=== PATIENT | male | born 1995 | race Two or more races ===

== ENCOUNTER 2016-07-12 20:02 | Emergency (ER) | payer OTHER ==
[~2016-07-12] VITALS: Ht 167.6 cm; Wt 65.8 kg
[2016-07-12] MEDS ORDERED: NKM (20:14)
[2016-07-12 20:21] VITALS: BP 124/78
[2016-07-12] MEDS ORDERED: Mylanta II UD 30ml ORAL ONE (21:00)
[2016-07-12] MEDS ORDERED: Loperamide 2mg cap ORAL ONE (21:00)
[2016-07-12 21:11] LABS: APPEARANCE,URINE CLEAR; KETONES,URINE 2+ (NEGATIVE); LEUKOCYTE ESTERASE ,URINE 1+ (NEGATIVE); NITRITE,URINE NEGATIVE (NEGATIVE); PH,URINE 8 (4.5-8.0); PROTEIN,URINE 1+ (NEGATIVE); UROBILINOGEN,URINE NORMAL MG/DL (0.0-1.0)
[2016-07-12 21:20] LABS: BACTERIA,URINE FEW /HPF; RBC,URINE 0-2 /HPF (0 - 0)
[2016-07-12 21:39] LABS: MEAN CORPUSCULAR HEMOGLOBIN 31.1 PG (27.0-31.0); MEAN CORPUSCULAR HGB CONC 33.1 G/DL (32.0-36.0); MEAN CORPUSCULAR VOLUME 94 FL (80-99); MEAN PLATELET VOLUME 6.5 FL (6.5-10.1); PLATELET COUNT 79 K/UL (150-450); RED BLOOD COUNT 3.32 M/UL (4.70-6.10); WHITE BLOOD COUNT 7.4 K/UL (4.8-10.8)
[2016-07-12 22:00] LABS: ALANINE AMINOTRANSFERASE 22 U/L (3-41); ALBUMIN/GLOBULIN RATIO 1.4 (1.0-2.7); ANION GAP 21 (5-15); ASPARTATE AMINO TRANSFERASE 33 U/L (5-40); CALCIUM 9.4 mg/dL (8.6-10.2); CARBON DIOXIDE 21 mEQ/L (20-30); CHLORIDE 95 mEQ/L (98-107); CREATININE 0.8 mg/dL (0.7-1.2); GLOMERULAR FILTRATION RATE > 60 mL/min (>60); HEMOLYSIS 225; LIPASE 23 U/L (< 60); POTASSIUM 4.2 mEQ/L (3.4-4.9); SODIUM 137 mEQ/L (135-145); TOTAL PROTEIN 7.3 g/dL (6.6-8.7)
[2016-07-12 22:02] VITALS: BP 128/73
[2016-07-12] MEDS ORDERED: ZOFRAN4 M3 ORAL (22:02)
[2016-07-12] MEDS ORDERED: IMODIUM2 MG ORAL (22:02)
[2016-07-12] MEDS ORDERED: IBUPROFEN600 MG ORAL (22:02)
[2016-07-12 22:11] LABS: ANISOCYTOSIS 1+; BAND NEUTROPHILS % (MANUAL) 2 % (0-8); BASOPHILS % (MANUAL) 0 % (0-2); EOSINOPHILS % (MANUAL) 0 % (0-3); LYMPHOCYTES % (MANUAL) 11 % (20-45); NEUTROPHILS % (MANUAL) 82 % (45-75); PLATELET ESTIMATE DECREASED; PLATELET MORPHOLOGY NORMAL; TOTAL CELLS COUNTED 100
[2016-07-12 22:31] VITALS: BP 128/73
--- NOTE | 2016-07-13 14:56 | Emergency Room Report ---
History of Present Illness General Chief Complaint: Nausea, Vomiting, and Diarrhea Source: Patient Present Illness HPI Patient is a 20-year-old male presented after increased of vomiting and diarrhea. Patient having generalized body aches. Patient had gradual onset of symptoms. Patient had no prior medical history. Patient denies any hematemesis or bloody stool or black stool. The patient reports having profuse watery diarrhea. He denies recent antibiotic use or recent travel. Allergies: Coded Allergies: No Known Allergies (Unverified , 07/12/16) Patient History Past Medical History: see triage record Reviewed Nursing Documentation: PMH: Agreed, PSxH: Agreed Nursing Documentation-PM Past Medical History: No Stated History Review of Systems All Other Systems: negative except mentioned in HPI Physical Exam Vital Signs Date Time Temp Pulse Resp B/P Pulse Ox O2 Delivery O2 Flow Rate FiO2 07/12/16 20:08 99.3 93 20 124/78 97 Room Air General Appearance: well appearing, no apparent distress, alert, GCS 15 Head: normocephalic, atraumatic ENT: hearing grossly normal, normal voice Neck: full range of motion, supple Respiratory: no respiratory distress, speaking full sentences Cardiovascular #1: normal peripheral pulses, regular rate, rhythm, no edema Gastrointestinal: normal bowel sounds, non tender, soft, no mass, no organomegaly Musculoskeletal: normal inspection, back normal, digits/nails normal, gait/ station normal, no calf tenderness Neurologic: normal inspection, alert, oriented x3, responsive, brown stock washer III-XII nml as tested, motor strength/tone normal, normal gait Psychiatric: mood/affect normal Skin: normal inspection, no rash Medical Decision Making Diagnostic Impression: Primary Impression: Gastroenteritis ER Course Patient presented for abdominal pain. Differential diagnoses included ischemic bowel, appendicitis, perforated viscus, abdominal aortic aneurysm, inferior myocardial infarction, viral gastroenteritis Because of complexity of patient's case laboratory testing and imaging studies were ordered. The left her sensation normal white blood count as well as normal electrolytes. Patient started on IV fluids and antiemetics as well as Imodium. Patient was given Toradol for pain. The patient appears to have a viral gastroenteritis. Patient was advised to not work for the next 2 days.The patient is advised to follow up with primary care doctor in 1-2 days. Patient is advised to return if any worsening condition or if any changes in status that are concerning. Laboratory Tests Test 07/12/16 20:23 07/12/16 21:20 Urine Color Pale yellow Urine Appearance Clear Urine pH 8 (4.5-8.0) Urine Specific [place] 1.010 (1.005-1.035) Urine Protein 1+ (NEGATIVE) H Urine Glucose (UA) Negative (NEGATIVE) Urine Ketones 2+ (NEGATIVE) H Urine Occult Blood Negative (NEGATIVE) Urine Nitrite Negative (NEGATIVE) Urine Bilirubin Negative (NEGATIVE) Urine Urobilinogen Normal MG/DL (0.0-1.0) Urine Leukocyte Esterase 1+ (NEGATIVE) H Urine RBC 0-2 /HPF (0 - 0) H Urine WBC 2-4 /HPF (0 - 0) Urine Squamous Epithelial Cells None /LPF (NONE/OCC) Urine Bacteria Few /HPF (NONE) White Blood Count 7.4 K/UL (4.8-10.8) Red Blood Count 3.32 M/UL (4.70-6.10) L Hemoglobin 10.3 G/DL (14.2-18.0) L Hematocrit 31.2 % (42.0-52.0) L Mean Corpuscular Volume 94 FL (80-99) Mean Corpuscular Hemoglobin 31.1 PG (27.0-31.0) H Mean Corpuscular Hemoglobin Concent 33.1 G/DL (32.0-36.0) Red Cell Distribution Width 12.0 % (11.6-14.8) Platelet Count 79 K/UL (150-450) L Mean Platelet Volume 6.5 FL (6.5-10.1) Neutrophils (%) (Auto) % (45.0-75.0) Lymphocytes (%) (Auto) % (20.0-45.0) Monocytes (%) (Auto) % (1.0-10.0) Eosinophils (%) (Auto) % (0.0-3.0) Basophils (%) (Auto) % (0.0-2.0) Differential Total Cells Counted 100 Neutrophils % (Manual) 82 % (45-75) H Lymphocytes % (Manual) 11 % (20-45) L Monocytes % (Manual) 5 % (1-10) Eosinophils % (Manual) 0 % (0-3) Basophils % (Manual) 0 % (0-2) Band Neutrophils 2 % (0-8) Platelet Estimate Decreased L Platelet Morphology Normal Anisocytosis 1+ Sodium Level 137 mEQ/L (135-145) Potassium Level 4.2 mEQ/L (3.4-4.9) Chloride Level 95 mEQ/L (98-107) L Carbon Dioxide Level 21 mEQ/L (20-30) Anion Gap 21 (5-15) H Blood Urea Nitrogen 11 mg/dL (7-23) Creatinine 0.8 mg/dL (0.7-1.2) Estimate Glomerular Filtration Rate > 60 mL/min (>60) Glucose Level 100 mg/dL (74-106) Calcium Level 9.4 mg/dL (8.6-10.2) Total Bilirubin 0.7 mg/dL (0.0-1.2) Aspartate Amino Transferase (AST) 33 U/L (5-40) Alanine Aminotransferase (ALT) 22 U/L (3-41) Alkaline Phosphatase 71 U/L (40-129) Total Protein 7.3 g/dL (6.6-8.7) Albumin 4.3 g/dL (3.5-5.2) Globulin 3.0 g/dL Albumin/Globulin Ratio 1.4 (1.0-2.7) Lipase 23 U/L (< 60) Last Vital Signs Date Time Temp Pulse Resp B/P Pulse Ox O2 Delivery O2 Flow Rate FiO2 07/12/16 22:31 99.3 79 20 128/73 98 Room Air Status: improved Disposition: HOME, SELF-CARE Condition: Stable Scripts Ibuprofen* (MOTRIN*) 600 Mg Tablet 600 MG ORAL Q8H Y for For Pain, #30 TAB 0 Refills Prov: Ariel Aguilera 07/12/16 Loperamide HCl (Loperamide) 2 Mg Capsule 2 MG ORAL Q4H, #20 CAP 0 Refills Prov: Ariel Aguilera 07/12/16 Ondansetron* (ZOFRAN*) 4 Mg Tablet 4 MG ORAL Q6H Y for Nausea & Vomiting, #20 TAB Prov: Ariel Aguilera 07/12/16 Patient Instructions: Viral Gastroenteritis, Adult Ariel Aguilera Jul 13, 2016 14:56
== END 2016-07-12 22:31 | disposition home or self-care (01) ==
LOC: EMR 20:44
DX: K52.9 Noninfective gastroenteritis and colitis, unspecified (principal)
CPT/HCPCS: 36415; 80053; 81003; 83690; 85007; 85025; 96360; 96374; 96375; 99284; J2405

== ENCOUNTER 2017-07-25 15:16 | Emergency (ER) | payer OTHER ==
[~2017-07-25] VITALS: Ht 167.6 cm; Wt 72.6 kg
[~2017-07-25 15:16] MED LIST: IBUPROFEN600 MG ORAL; IMODIUM2 MG ORAL; NKM; ZOFRAN4 M3 ORAL
[2017-07-25] MEDS ORDERED: Ketorolac 60mg Inj IM ONE (16:15)
[2017-07-25 16:43] LABS: APPEARANCE,URINE SLIGHTLY CLOUDY; BILIRUBIN, URINE NEGATIVE (NEGATIVE); COLOR,URINE AMBER; GLUCOSE, URINE (UA) NEGATIVE (NEGATIVE); KETONES,URINE 2+ (NEGATIVE); LEUKOCYTE ESTERASE ,URINE NEGATIVE (NEGATIVE); NITRITE,URINE NEGATIVE (NEGATIVE); PH,URINE 7 (4.5-8.0); PROTEIN,URINE 2+ (NEGATIVE); UROBILINOGEN,URINE NORMAL MG/DL (0.0-1.0)
[2017-07-25] MEDS ORDERED: Phenazopyridine 200mg tab ORAL ONE (17:15)
--- NOTE | 2017-07-25 17:20 | Emergency Room Report ---
History of Present Illness General Chief Complaint: Flu Like Symptoms Source: Patient Present Illness HPI 21 YO Male Pt. presents to the ED c/o cough, nasal congestion, rhinorrhea, body- aches, fevers, chills and headaches and 10/[address] x 5 days. Patient states that he was evaluated at [facility] emergency on the second day of his symptoms and he was given an injection of penicillin G and then discharged home. He has been using Tylenol and Nyquil with only mild relief of symptoms that are temporary. Patient states that he was told he had pus on his tonsils. Patient states his symptoms have not improved. Pt did not receive flu vaccine. no recent travel. denies rashes. Denies abdominal pain, constipation/ diarrhea. Pt. also reports concentrated urine with some dysuria. denies penile d /c, Swollen tender lymph nodes or genital lesions. Patient denies testicular pain or swelling. Allergies: Coded Allergies: No Known Allergies (Unverified , 07/12/16) Patient History Past Medical History: see triage record Past Surgical History: none Pertinent Family History: none Reviewed Nursing Documentation: PMH: Agreed, PSxH: Agreed Nursing Documentation-PMH Past Medical History: No History, Except For Review of Systems All Other Systems: negative except mentioned in HPI Physical Exam Vital Signs Date Time Temp Pulse Resp B/P (MAP) Pulse Ox O2 Delivery O2 Flow Rate FiO2 07/25/17 15:33 100.1 109 16 126/79 96 Room Air 100.0 Sp02 EP Interpretation: reviewed, normal General Appearance: no apparent distress, alert, GCS 15, non-toxic Head: normocephalic, atraumatic Eyes: bilateral eye normal inspection, bilateral eye PERRL, bilateral eye other - no photophobia ENT: hearing grossly normal, normal voice, TMs + canals normal, uvula midline, nasal congestion, pharyngeal erythema, other - no tonsillar swelling or exudates Neck: full range of motion, no meningismus - FROM neck without pain, negative kernigs. , no bony tend Respiratory: chest non-tender, lungs clear, normal breath sounds, no respiratory distress, no accessory muscle use, no wheezing, speaking full sentences Cardiovascular #1: regular rate, rhythm Gastrointestinal: non tender, soft Genitourinary: normal inspection, no CVA tenderness Musculoskeletal: back normal, gait/station normal, normal range of motion, non- tender Neurologic: alert, oriented x3, responsive, motor strength/tone normal, sensory intact, speech normal, grossly normal Psychiatric: judgement/insight normal Skin: normal color, no rash, warm/dry, well hydrated Medical Decision Making PA Attestation Dr. Lowry is my supervising Physician whom patient management has been discussed with. Diagnostic Impression: Primary Impression: Viral syndrome Additional Impression: Dysuria ER Course 21 YO Male Pt. presents to the ED c/o cough, nasal congestion, rhinorrhea, body- aches, fevers, chills and headaches and 10/[address] x 5 days. Patient states that he was evaluated at [facility] emergency on the second day of his symptoms and he was given an injection of penicillin G and then discharged home. He has been using Tylenol and Nyquil with only mild relief of symptoms that are temporary. Patient states that he was told he had pus on his tonsils. Patient states his symptoms have not improved. Pt did not receive flu vaccine. no recent travel. denies rashes. Denies abdominal pain, constipation/ diarrhea. Pt. also reports concentrated urine with some dysuria. denies penile d /c, Swollen tender lymph nodes or genital lesions. Patient denies testicular pain or swelling. Ddx considered but are not limited to URI, pneumonia, PE, strep pharyngitis, meningitis, influenza, OM/OE just to name a few. Vital signs: Pt. is afebrile, the remaining VS are WNL H&PE are most consistent with Viral Syndrome suspicious for Influenza will treat clinically - no meningeal signs, Lungs are clear and oropharynx is not involved, no evidence of bacterial infection at this time. ORDERS: -UA: Unremarkable ED INTERVENTIONS: -Toradol -Pyridium d/w pt. conservative treatment, and to follow up with a primary care provider. pt given a list of primary care clinics for follow up. d/w pt. to return to the ED with worsening or new symptoms. DISCHARGE: At this time pt. is stable for d/c to home. Will provide printed patient care instructions, and any necessary prescriptions. Care plan and follow up instructions have been discussed with the patient prior to discharge. Labs Test 07/25/17 16:06 Urine Color [place] Urine Appearance Slightly cloudy Urine pH 7 (4.5-8.0) Urine Specific [place] 1.005 (1.005-1.035) Urine Protein 2+ (NEGATIVE) Urine Glucose (UA) Negative (NEGATIVE) Urine Ketones 2+ (NEGATIVE) Urine Occult Blood Negative (NEGATIVE) Urine Nitrite Negative (NEGATIVE) Urine Bilirubin Negative (NEGATIVE) Urine Ictotest Negative Urine Urobilinogen Normal MG/DL (0.0-1.0) Urine Leukocyte Esterase Negative (NEGATIVE) Urine RBC 0-2 /HPF (0 - 0) Urine WBC 0-2 /HPF (0 - 0) Urine Squamous Epithelial Cells Occasional /LPF Urine Bacteria Few /HPF (NONE) Urine Mucus Moderate /LPF (NONE/OCC) Last Vital Signs Date Time Temp Pulse Resp B/P (MAP) Pulse Ox O2 Delivery O2 Flow Rate FiO2 07/25/17 16:30 100.1 07/25/17 15:45 109 16 Room Air 07/25/17 15:33 126/79 96 Disposition: HOME, SELF-CARE Condition: Stable Scripts Phenazopyridine Hcl* (PYRIDIUM*) 200 Mg Tablet 200 MG ORAL THREE TIMES A DAY, #3 TAB 0 Refills Prov: Jeniffer Cannon P.A. 07/25/17 Codeine/Promethazine Hcl* (PROMETHAZINE-CODEINE SYRUP*) 118 Ml Syrup 5 ML ORAL Q6H Y for For Cough, #120 ML 0 Refills Prov: Jeniffer Cannon P.A. 07/25/17 Acetaminophen* (TYLENOL EXTRA STRENGTH*) 500 Mg Tablet 500 MG ORAL Q6H Y for Mild Pain/Temp > 100.5, #20 TAB 0 Refills Prov: Jeniffer Cannon P.A. 07/25/17 Naproxen* (NAPROSYN*) 500 Mg Tablet 500 MG ORAL TWICE A DAY for 10 Days, #20 TAB Prov: Jeniffer Cannon P.A. 07/25/17 Referrals: NON PHYSICIAN (PCP) Departure Forms: Return to Work Return to Work Date: Jul 29, 2017 Work Restrictions: None Return to Full Activity: Jul 29, 2017 Patient Instructions: Dysuria, Upper Respiratory Infection, Adult Additional Instructions: Take medications as directed. Follow up with a Primary Care Provider in 3-5 days, even if your symptoms have resolved. --Please review list of primary care clinics, if you do not already have a primary care provider Return sooner to ED if new symptoms occur, or current symptoms become worse. Do not drink alcohol, drive, or operate heavy machinery while taking Cough Syrup as this may cause drowsiness. - Please note that this Emergency Department Report was dictated using [id number] operations manager technology software, occasionally this can lead to erroneous entry secondary to interpretation by the dictation equipment. Jeniffer Cannon Jul 25, 2017 17:20
[2017-07-25] MEDS ORDERED: PROMETHAZINE-C118 M1 ORAL (17:22)
[2017-07-25] MEDS ORDERED: NAPROSYN500 M1 ORAL (17:22)
[2017-07-25] MEDS ORDERED: PHENAZOPYRIDIN200 MG ORAL (17:22)
[2017-07-25] MEDS ORDERED: TYLENOL EXTRA500 MG ORAL (17:22)
[2017-07-25 17:53] VITALS: BP 127/77
== END 2017-07-25 17:53 | disposition home or self-care (01) ==
LOC: EMR 16:56
DX: B34.9 Viral infection, unspecified (principal); R30.0 Dysuria
CPT/HCPCS: 81003; 96372; 99284

== ENCOUNTER 2017-11-29 16:11 | Emergency (ER) | payer OTHER ==
[~2017-11-29] VITALS: Ht 167.6 cm; Wt 72.6 kg
[~2017-11-29 16:11] MED LIST changes: +NAPROSYN500 M1 ORAL; +PHENAZOPYRIDIN200 MG ORAL; +PROMETHAZINE-C118 M1 ORAL; +TYLENOL EXTRA500 MG ORAL
[2017-11-29] MEDS ORDERED: Azithromycin 250mg tab ORAL ONE (16:30)
[2017-11-29] MEDS ORDERED: Lidocaine 1% MPF 10mg/ml 5ml INJ ONE (16:30)
--- NOTE | 2017-11-29 16:44 | Emergency Room Report ---
History of Present Illness General Chief Complaint: Male Urogenital Problems Source: Patient Present Illness HPI 22-year-old male patient presents ER course and evaluation for STI. Patient currently being seen in the ER with his girlfriend who is currently being evaluated for STI infection as well. Reports that he had unprotected sex with his girlfriend after she had unprotected sex with another man who tested positive for chlamydia allegedly. Patient denies penile discharge. Denies testicular swelling or pain. Denies denies rash. Denies dysuria, hematuria. Denies fever, chest pain, shortness breath, abdominal pain, flank pain, back pain. Allergies: Coded Allergies: No Known Allergies (Unverified , 07/12/16) Patient History Past Medical History: see triage record Reviewed Nursing Documentation: PMH: Agreed; PSxH: Agreed Nursing Documentation-PMH Past Medical History: No History, Except For Review of Systems All Other Systems: negative except mentioned in HPI Physical Exam Vital Signs Date Time Temp Pulse Resp B/P (MAP) Pulse Ox O2 Delivery O2 Flow Rate FiO2 11/29/17 16:30 98.3 101 18 139/91 98 Room Air 98.2 Sp02 EP Interpretation: reviewed, normal General Appearance: well appearing, no apparent distress, alert, GCS 15, non- toxic Head: normocephalic, atraumatic Eyes: bilateral eye normal inspection, bilateral eye PERRL ENT: hearing grossly normal, normal pharynx, no angioedema, normal voice, uvula midline, moist mucus membranes Neck: full range of motion Respiratory: lungs clear, normal breath sounds, no rhonchi, no respiratory distress, no accessory muscle use, no wheezing, speaking full sentences Cardiovascular #1: regular rate, rhythm, no edema Gastrointestinal: non tender, soft, no mass, non-distended, no guarding, no rebound, other - negative Rovsing, negative obturator, negative ferris Genitourinary: no CVA tenderness Musculoskeletal: back normal, digits/nails normal, gait/station normal, normal range of motion, non-tender Neurologic: alert, oriented x3, responsive, motor strength/tone normal, sensory intact Psychiatric: mood/affect normal Skin: no rash Medical Decision Making PA Attestation Dr. Lowry is my supervising Physician whom patient management has been discussed with. Diagnostic Impression: Primary Impression: Encounter for assessment of sexually transmitted disease exposure ER Course Pt presents to ED c/o painful urinary symptoms. DDX considered but are not limited to cystitis, pyelonephritis, STI,urethritis, epididymitis. VITAL SIGNS are WNL, patient is afebrile. Ordered UA. ER COURSE penile exam deferred by patient. Denies rash or lesions on genitalia. UA results unremarkable, do not indicate UTI, does not require treatment with abx. mild protein noted in the patient's urine, may be due to infection, advised patient to follow-up with primary care provider and discuss referral to nephrology as needed. Patient currently be seen in ER at the same time as his girlfriend for evaluation for STI. Patient has concern for STI, no provide treatment for STI to cover gonorrhea and chlamydia. Provided with Rocephin and Azithromycin. Followup with STI clinic for testing and treatment. Need evaluation for HIV/AIDs , syphilis, herpes and other STI infections at that time. Alert all sexual partners for need for testing. Wear condoms during sex. Avoid sexual activity for the next 2 weeks. Drink plenty of fluids. Patient is resting comfortably in chair, nontoxic appearing, in no acute distress. patient okay for discharge to home. DISCHARGE Patient is stable for discharge. Patient resting comfortably, in no acute distress, nontoxic appearing, talking without difficulty. Will provide with patient care instructions and any necessary prescriptions. Patient understands and agrees to treatment plan. Patient encouraged to drink plenty of fluids. Patient to take medication as instructed. Care plan and follow-up instructions provided. Patient questions asked and answered. Reports understanding and agreement to treatment plan. Patient instructed to follow-up with primary care provider in 3 - 5 days. ER precautions given. Patient instructed to return to ER immediately for any new or worsening of symptoms. Including but not limited to fever, abdominal pain , intractable vomiting. - Please note that this Emergency Department Report was dictated using [employer] frame dipper technology software, occasionally this can lead to erroneous entry secondary to interpretation by the dictation equipment. Labs Test 11/29/17 16:38 Urine Color Yellow Urine Appearance Clear Urine pH 6 (4.5-8.0) Urine Specific [place] 1.025 (1.005-1.035) Urine Protein 2+ (NEGATIVE) Urine Glucose (UA) Negative (NEGATIVE) Urine Ketones 3+ (NEGATIVE) Urine Occult Blood 1+ (NEGATIVE) Urine Nitrite Negative (NEGATIVE) Urine Bilirubin 1+ (NEGATIVE) Urine Ictotest Negative Urine Urobilinogen 4 MG/DL (0.0-1.0) Urine Leukocyte Esterase 1+ (NEGATIVE) Urine RBC 2-4 /HPF (0 - 0) Urine WBC 2-4 /HPF (0 - 0) Urine Squamous Epithelial Cells None /LPF (NONE/OCC) Urine Bacteria Few /HPF (NONE) Last Vital Signs Date Time Temp Pulse Resp B/P (MAP) Pulse Ox O2 Delivery O2 Flow Rate FiO2 11/29/17 16:30 98.3 101 18 139/91 98 Room Air 98.2 Disposition: HOME, SELF-CARE Condition: Stable Patient Instructions: Sexually Transmitted Disease, [id number] Additional Instructions: Followup with primary care provider and followup with STI clinic for further evaluation and treatment. Needs testing for gonorrhea, chlamydia, HIV, syphilis and others as needed. Followup with primary care provider to discuss need for referral to nephrology. Alert sexual partners for need for evaluation and treatment. Wear condoms during sex. Avoid sexual activity for 2 weeks. Drink plenty of fluids. Patient questions asked and answered. ER precautions given, patient instructed to return to ER immediately for any new or worsening of symptoms. Deni Gonsalez Nov 29, 2017 16:44
[2017-11-29 16:50] VITALS: BP 139/91
[2017-11-29 17:06] LABS: APPEARANCE,URINE CLEAR; BILIRUBIN, URINE 1+ (NEGATIVE); GLUCOSE, URINE (UA) NEGATIVE (NEGATIVE); KETONES,URINE 3+ (NEGATIVE); LEUKOCYTE ESTERASE ,URINE 1+ (NEGATIVE); NITRITE,URINE NEGATIVE (NEGATIVE); PH,URINE 6 (4.5-8.0); PROTEIN,URINE 2+ (NEGATIVE); UROBILINOGEN,URINE 4 MG/DL (0.0-1.0)
[2017-11-29 17:11] LABS: COLOR,URINE YELLOW
[2017-11-29 17:58] VITALS: BP 139/91
== END 2017-11-29 18:00 | disposition home or self-care (01) ==
LOC: EMR 16:45
DX: Z11.3 Encounter for screening for infections with a predominantly sexual mode of transmission (principal); Z20.2 Contact with and (suspected) exposure to infections with a predominantly sexual mode of transmission
CPT/HCPCS: 81003; 96372; 99283; J0696; Q0144